=== PATIENT | female | born 1975 | race Caucasian/White ===

== ENCOUNTER 2023-02-06 12:00 | Emergency (ER) | payer OTHER, SELFPAY ==
[2023-02-06 12:08] VITALS: BP 122/90; PULSE 96; RESP 14; TEMP 36.5; O2SAT 100
[2023-02-06 12:20] VITALS: BP 122/90; PULSE 96; RESP 14; TEMP 36.5; O2SAT 100
--- NOTE | 2023-02-06 12:25 | ED.GENADULT ---
HPI - General Adult General Chief complaint: Upper Respiratory Infection Stated complaint: Sore Throat Source: patient Mode of arrival: ambulatory Limitations: no limitations History of Present Illness HPI narrative: PATIENT PRESENTS FOR EVALUATION OF SORE THROAT FOR THE LAST 2 DAYS. FOUR FAMILY MEMBERS RECENTLY TESTED POSITIVE FOR STREP. HE REPORTS FEVER BUT DENIES CHILLS, OTALGIA, SINUS CONGESTION/DRAINAGE, COUGH, NAUSEA, VOMITING, DIARRHEA. HE HAS TAKEN TYLENOL AND MUCINEX FOR SYMPTOMS. HE DOES NOT SMOKE. Related Data Home Medications Medication Instructions Recorded Confirmed aspirin 81 mg tablet 81 mg PO DAILY 02/06/23 02/06/23 gabapentin 300 mg tablet 300 mg PO DAILY 02/06/23 02/06/23 lisinopril 20 1 tablet PO BID 02/06/23 02/06/23 mg-hydrochlorothiazide 12.5 mg tablet Allergies Allergy/AdvReac Type Severity Reaction Status Date / Time No Known Allergies Allergy Verified 02/06/23 12:19 Review of Systems Review of Systems: CONSTITUTIONAL: DENIES FEVER, CHILLS, OR SWEATS. EYES: DENIES VISUAL CHANGES, REDNESS, OR DISCHARGE. ENT: REPORTS SORE THROAT. DENIES RHINORRHEA, CONGESTION, OR OTALGIA. CARDIOVASCULAR: DENIES CHEST PAIN, PALPITATIONS, OR EDEMA. RESPIRATORY: DENIES COUGH OR DYSPNEA. GASTROINTESTINAL: DENIES ABDOMINAL PAIN, NAUSEA, VOMITING, OR DIARRHEA. GENITOURINARY: DENIES DYSURIA OR HEMATURIA. SKIN: DENIES RASH OR ITCHING. MUSCULOSKELETAL: DENIES BACK PAIN, JOINT PAIN, OR MYALGIA. NEUROLOGIC: DENIES HEADACHE, NUMBNESS, DIZZINESS, OR WEAKNESS. PSYCHIATRIC: DENIES ANXIETY OR DEPRESSION. [facility] Past Medical History Medical History (Updated 02/06/23 @ 12:34 by [employer] Reynoso, NATASHA) No pertinent past medical history Surgical History Surgical History History of hand surgery Family History Family History Mother Family history non-contributory Social History Social History Smoking status: Never smoker Substance use: never Living arrangements: with family Gender identity (if verbalized by the patient): Female Sexual Orientation (if Verbalized by the Patient): Straight or Heterosexual Exam Narrative: GENERAL: WELL-APPEARING, WELL-NOURISHED, AND IN NO ACUTE DISTRESS. HEAD: NORMOCEPHALIC, ATRAUMATIC. EYES: PERRLA AND EOMI. ENT: NARES CLEAR, NO RHINORRHEA OR EPISTAXIS. MUCOUS MEMBRANES MOIST. POSTERIOR PHARYNGEAL ERYTHEMA WITHOUT EXUDATE. UVULA IS MIDLINE. BILATERAL TMS PEARLY ROW[place] NONBULGING NECK: SUPPLE. NO ADENOPATHY OR MASSES. NO CAROTID BRUITS OR JVD CHEST: CLEAR TO AUSCULTATION. NO RESPIRATORY DISTRESS. NO WHEEZES RALES OR RHONCHI HEART: REGULAR RATE AND RHYTHM. NO MURMUR HEARD. NORMAL PERIPHERAL PULSES. ABDOMEN: SOFT, NONTENDER, NONDISTENDED, NORMAL ACTIVE BOWEL SOUNDS. EXTREMITIES: NORMAL RANGE OF MOTION. NO EDEMA. SKIN: SPLINT INTACT TO RIGHT HAND/WRIST. WARM, DRY, NO RASH. NEURO: NO FOCAL DEFICITS. ALERT AND ORIENTED X3. PSYCH: NORMAL MOOD AND AFFECT. Course Course Emergency Course: THIS IS A 47-YEAR-OLD MALE WHO PRESENTED FOR EVALUATION OF SORE THROAT AFTER RECENT STREP EXPOSURE. RAPID STREP POSITIVE. WILL TREAT WITH AMOXICILLIN. INCREASE HYDRATION. [id number] AGENTS FOR SYMPTOM MANAGEMENT. FOLLOW UP WITH PRIMARY PROVIDER. GO TO THE ER FOR WORSENING SYMPTOMS. PATIENT IN AGREEMENT WITH PLAN CARE Level of Care: Express Care Visit Vital Signs Vital signs: Vital Signs Temperature 36.5 C 02/06/23 12:08 Pulse Rate 96 02/06/23 12:08 Respiratory Rate 14 02/06/23 12:08 Blood Pressure 122/90 02/06/23 12:08 Pulse Oximetry 100 02/06/23 12:08 Oxygen Delivery Room Air 02/06/23 12:08 Temperature 36.5 C 02/06/23 12:20 Pulse Rate 96 02/06/23 12:20 Respiratory Rate 14 02/06/23 12:20 Blood Pressure 122/90 02/06/23 12:20 Pulse Oximetry 100
== END 2023-02-06 12:37 | disposition home or self-care (01) ==
PROVIDERS: Emergency Provider Nurse Practitioner
DX: J02.0 Streptococcal pharyngitis (principal)
CPT/HCPCS: 87880; 99213; G0463